=== PATIENT | female | born 1980 | race Caucasian/White ===

== ENCOUNTER 2020-08-17 21:52 | Inpatient (IN) | payer OTHER ==
[~2020-08-17] VITALS: Ht 160 cm; Wt 959.8 kg
[2020-08-17] MEDS ORDERED: PRENATAL TABLE1 EAC1 PO (23:48)
[2020-08-17] MEDS ORDERED: IRON PO (23:49)
[2020-08-17] MEDS ORDERED: CHILDREN'S ASPI81 MG PO (23:50)
[2020-08-18] MEDS ORDERED: IRON236 MG PO (07:57)
== END 2020-08-20 14:11 | disposition home or self-care (01) | DRG 807 ==
LOC: OB/GYN 21:52 → LDR 21:52 → OB/GYN 08-18 13:27
PROVIDERS: ADMIT Obstetrics & Gynecology; ATTEND Obstetrics & Gynecology
PROC: 10E0XZZ Delivery of Products of Conception, External Approach (ICD-10-PCS; principal; 2020-08-17)
PROC: 0HQ9XZZ Repair Perineum Skin, External Approach (ICD-10-PCS; 2020-08-17)
PROC: 4A1HXFZ Monitoring of Products of Conception, Cardiac Rhythm, External Approach (ICD-10-PCS; 2020-08-17)
DX: O42.013 Preterm premature rupture of membranes, onset of labor within 24 hours of rupture, third trimester (principal); Z37.0 Single live birth; O70.0 First degree perineal laceration during delivery; Z3A.35 35 weeks gestation of pregnancy; Z20.822 Contact with and (suspected) exposure to COVID-19